=== PATIENT | female | born 1990 | race Two or more races ===

== ENCOUNTER 2025-05-30 19:40 | Emergency (ER) | payer MEDICAID, SELFPAY ==
[2025-05-30 19:43] VITALS: BMI 47.4
[2025-05-30 20:06] VITALS: BP 134/86; PULSE 103; RESP 18; TEMP 36.8; O2SAT 96
--- NOTE | 2025-05-30 20:13 | XR_ITS ---
Examination: Complete OB ultrasound, less than 14 weeks, transabdominal Date and time of exam: May 30, 2025, 2141 hours INDICATIONS: Vaginal bleeding today Technique: Obstetrical ultrasound images less than 14 weeks performed via transabdominal imaging Findings: Uterus 9.1 cm no uterine mass or intrauterine gestation Endometrial stripe 1.4 cm Right ovary 3.6 cm arterial flow Left ovary 2.9 cm arterial flow No fluid in the cul-de-sac IMPRESSION: No uterine mass or intrauterine gestation No adnexal mass
--- NOTE | 2025-05-30 20:14 | PD.EDRME ---
Rapid Medical Screening Exam RME Arrival date/time: 05/30/25 19:40 This is a case of 34-year-old female with no medical history came in in the emergency room due to vaginal bleeding patient states that she took a test 2 weeks ago and it was positive 5 para 1 unknown weeks of Chief Complaint: Vaginal Bleeding Time Seen by Provider: 05/30/25 19:50 Vital signs: Vital Signs Temperature 98.2 F 05/30/25 20:06 Pulse Rate 103 H 05/30/25 20:06 Respiratory Rate 18 05/30/25 20:06 Blood Pressure 134/86 H 05/30/25 20:06 Pulse Oximetry (%) 96 05/30/25 20:06 Oxygen Delivery Method Room Air 05/30/25 20:06 Exam: Abdomen soft no guarding no rebound no rigidity Clinical Impression: Vaginal bleeding and
[2025-05-30 21:06] LABS: Collection Type, Urine Voided
[2025-05-30 21:06] LABS: Basophils # (Auto) 0.1 Thou/mm3 (0.0-0.2); Basophils % (Auto) 1 % (0-2.5); Eosinophils # (Auto) 0.0 Thou/mm3 (0.0-0.5); Eosinophils % (Auto) 1 % (0-10); Hematocrit 42.8 % (36.0-46.0); Hemoglobin 15.0 g/dL (12.0-16.0); Immature Granulocytes Auto 0.03 Thou/mm3 (0.00-0.00); Lymphocytes # (Auto) 2.8 Thou/mm3 (1.0-4.8); Lymphocytes % (Auto) 35 % (10-50); Mean Corpuscular HGB Conc 35.0 g/dl (31.0-37.0); Mean Corpuscular Hemoglobin 28.5 pg (25.0-35.0); Mean Corpuscular Volume 81 fL (80-100); Monocytes # (Auto) 0.7 Thou/mm3 (0.0-0.8); Monocytes % (Auto) 8 % (0-12); Neutrophils # (Auto) 4.4 Thou/mm3 (1.8-7.7); Neutrophils % (Auto) 55 % (37-80); Nucleated Red Blood Cell # 0.00 Thou/mm3 (0.00-0.00); Nucleated Red Blood Cell % 0 /100 WBC (0); Platelet Count 299 Thou/mm3 (140-440); RDW Standard Deviation 35.1 fL (36.4-46.3); Red Blood Count 5.27 Miln/mm3 (4.00-5.20); White Blood Count 8.0 Thou/mm3 (3.6-11.0)
[2025-05-30 21:21] LABS: Bacteria,Urine 1+; Bilirubin,Urine Negative (Negative); Blood,Urine 3+ (Negative); Clarity,Urine Turbid (Clear/Hazy); Color,Urine Yellow (Lt Yel-Yel); Glucose, Urine 3+ (Negative); Ketones,Urine Negative (Negative); Leukocyte Esterase,Urine Negative (Negative); Nitrite,Urine Negative (Negative); PH,Urine 6.5 (5.0-7.0); Protein,Urine Trace (Neg - Trace); RBC,Urine 59 /hpf (0-3); Specific Gravity,Urine 1.029 (1.001-1.035); Squamous Epithelial Cell,Urine 19 /hpf (0-5); Urobilinogen,Urine 3.0 mg/dL (0.0-1.0); WBC,Urine 6 /hpf (0-5)
[2025-05-30 22:47] LABS: Alanine Aminotransferase 50 U/L (10-49); Albumin, Serum 4.3 gm/dL (3.5-5.0); Albumin/Globulin Ratio 1.3 (1.2-2.2); Alkaline Phosphatase 108 U/L (46-116); Anion Gap 11 (7-16); Aspartate Amino Transferase 44 U/L (0-34); BUN/Creatinine Ratio 13 Ratio (12-20); Beta HCG,Quantitative 1 mIU/mL (<5.0); Bilirubin,Total 0.2 mg/dL (0.3-1.2); Blood Urea Nitrogen 12 mg/dL (9-23); Calcium 9.7 mg/dL (8.3-10.6); Calcium (Corrected) 9.7 mg/dL (8.5-10.1); Carbon Dioxide 25.0 mMol/L (20.0-31.0); Chloride 103 mMol/L (98-107); Creatinine (Component) 0.9 mg/dL (0.6-1.3); Estimated Creatinine Clearance 144.8 mL/min (>60); Globulin 3.3 gm/dL (2.3-3.5); Glucose 201 mg/dL (74-106); Osmolality,Calculated 283 (275-295); Sodium 139 mMol/L (136-145); Total Protein 7.6 gm/dL (5.7-8.2); eGFR > 60 See Note
[2025-05-30 22:48] LABS: Potassium 4.5 mMol/L (3.4-5.1)
--- NOTE | 2025-05-30 23:25 | PD.EDVAGBL ---
ED OB Contraction Preg RMI/HPI General Chief complaint: Vaginal Bleeding Stated complaint: WANTS A TEST Time Seen by Provider: 05/30/25 19:50 Arrival date/time: 05/30/25 19:40 34-year-old female patient came in for evaluation regarding request for test. Patient told me that she has been having vaginal bleeding for the last 15 days severity moderate. Patient is 4 para 1 3. Patient denies any pelvic pain denies any dizziness denies any other complaints patient is ambulatory RME / HPI RME / HPI Narrative: 05/30/25 19:40 This is a case of 34-year-old female with no medical history came in in the emergency room due to vaginal bleeding patient states that she took a test 2 weeks ago and it was positive 5 para 1 unknown weeks of Exam: Abdomen soft no guarding no rebound no rigidity Impression: Vaginal bleeding and Related Data Home Medications ?Medication ?Instructions ?Recorded ?Confirmed Unobtainable 09/27/23 09/27/23 Allergies Allergy/AdvReac Type Severity Reaction Status Date / Time No Known Allergies Allergy Verified 09/27/23 13:47 Review of Systems Review of Systems Narrative Review of Systems: Review of system reviewed and within normal limits except mentioned in HPI ED Exam Narrative Physical exam: VITAL SIGNS: Reviewed. GENERAL APPEARANCE: Alert and interactive, follows commands, no acute distress, HEAD AND FACE: Non-traumatic. ENT: PERRL, pink conjunctivitis, eyelid no trauma, Mucous membrane moist. NECK: Supple, nontender, no nuchal rigidity. CHEST: No tenderness, no crepitus, no paradoxical movement, no retractions. LUNGS: Clear, well ventilated, symmetric, no rales, no wheezing, no ronchi, no stridor, good breath sounds bilaterally. HEART: Regular rate, regular rhythm, no murmur, no gallops. ABDOMEN: Soft, positive bowel sounds, nondistended, no guarding, nontender, no rebound, no masses, RECTAL: Deferred. GENITAL: Deferred. NEUROLOGICAL: Gross motor function intact sensory function intact, Appropriate for age. MUSCULOSKELETAL: low back nontender, full range of motion. EXTREMITIES: Nontender, full range of motion. SKIN: Color pink, dry, no rash, no lacerations, no abrasions, no contusions. LYMPHATICS: Deferred. Course Quality Measures none Orders Category Date Time Status US OB <= 14 weeks fetus Stat Exams 05/30/25 20:13 Completed ABO/RH Type Stat Lab 05/30/25 20:51 Completed Beta HCG,Quantitative Stat Lab 05/30/25 20:51 Completed CBC Stat Lab 05/30/25 20:51 Completed CMP [Comprehensive Metabolic Panel] Stat Lab 05/30/25 20:51 Completed Urinalysis Stat Lab 05/30/25 20:40 Completed Vital Signs Vital signs: Vital Signs Temperature 98.2 F 05/30/25 20:06 Pulse Rate 103 H 05/30/25 20:06 Respiratory Rate 18 05/30/25 20:06 Blood Pressure 134/86 H 05/30/25 20:06 Pulse Oximetry (%) 96 05/30/25 20:06 Oxygen Delivery Method Room Air 05/30/25 20:06 Vaginal Bleeding MDM Narrative MDM Narrative: 34-year-old female patient came in for evaluation regarding request for test. Patient told me that she has been having vaginal bleeding for the last 15 days severity moderate. Patient is 4 para 1 3. Patient denies any pelvic pain denies any dizziness denies any other complaints patient is ambulatory Patient's workup today all came back normal patient is not . Ultrasound of the pelvis also showed no IUP no adnexal masses noted. Results discussed with the patient. Patient was told that she is not she is stable for discharge home. Patient data External records reviewed:: None Clinical information provided by:: patient Social determinants that could affect healthcare access:: none Patient has the following chronic illnesses:: None How is presenting disease/condition affected by chronic disease/condition?: no chronic disease Evaluation data The following diagnostics were reviewed and interpreted by me:: lab results and radiology exam(s) Lab and/or radiology exams considered but not ordered:: Plan Interpretation Summary: Several Medications / Prescriptions Medications or Prescriptions considered but not ordered:: None Medication administrations:: None Consultations Consultation(s) initiated? (list below): No Diagnosis Vaginal Bleeding Differential Diagnosis: dysfunctional uterine bleeding and menometrorrhagia Most likely diagnosis given after review of the tests above:: Menometrorrhagia Admission Indicated Admission indicated?: not indicated Admission Request Was there a request for admission?: No Disposition Plan Disposition Plan: Discharge Discharge Attestation Discharge Attestation: The patient was given an opportunity to ask questions and understood the discharge instructions. Discharge instructions specifically effects, indications for sooner follow up or return to the emergency department, and the expected course of current diagnosis. Patient condition: Stable Discharge Plan Plan Patient Disposition: HOME (Self Care) Discharge Disposition comment: Stable Prescriptions/Referrals Prescriptions/Med Rec: No Action Unobtainable Referrals: Bea Tsai MD [Primary Care Provider] - In 1 week Problem List Clinical Impression: Menometrorrhagia Patient/Caregiver Discharge Instructions Discharge Activity: activity as tolerated Education Materials: ED Dysfunctional Uterine Bleeding Additional Instructions: Thank you for the opportunity for serving you today. You are stable for discharged . You are advised to: Follow-up with your PCP in 1 to 2 days Return to ED for worsening of symptoms Increase oral fluids Your workup today showed you are not . Print Language: Vietnamese Stand Alone Forms: Gayathri Award Info., Patient Portal Info Letter COURTNEY/CORIE Supervising Physician COURTNEY/CORIE Supervising Physician: MD sunny
== END 2025-05-30 23:27 | disposition home or self-care (01) ==
PROVIDERS: Nurse Practitioner Family; Emergency Provider Nurse Practitioner Family; PCP Obstetrics & Gynecology
DX: N92.1 Excessive and frequent menstruation with irregular cycle (principal)
CPT/HCPCS: 36415; 76801; 80053; 81001; 84702; 85025; 86900; 86901; 99283